=== PATIENT | female | born 1985 | race Caucasian/White ===

== ENCOUNTER 2019-02-05 03:19 | Inpatient (IN) | payer OTHER ==
[~2019-02-05] VITALS: Ht 165.1 cm; Wt 83.9 kg
--- NOTE | ~2019-02-05 | CON ---
[address] [address] CONSULTATION Name: CORNELIA JOE Room: [address] IN M.R.#: [id number] Admission: 02/05/19 Attend Phys: Shell Bah MD Discharge: Date of : 81 Report #: [id number] THIS REPORT FOR: //name// CC: [facility] physician/PCP Shell Bah HISTORY OF PRESENT ILLNESS: A 33-year-old female with no significant past medical history, who is presenting for evaluation of right lower quadrant abdominal pain. The patient reports the pain has been present for the last few weeks and has become progressively worse. The patient reports the pain was sharp, episodic and colicky in nature and has progressively increased in intensity prior to presentation to the hospital. The patient reports the pain has been relieved after she was started on IV antibiotics. She did report that pain medications did not seem to have significant effect on the pain. The patient denies any nausea, vomiting, diarrhea, hematemesis, hematochezia or any recent weight loss. The patient reports she had a colonoscopy performed about 3 years back and was told there was some inflammation in her colon, although she was never treated for any inflammatory bowel disease and has never told she has Crohn's disease. The patient was given a course of antibiotics at that time. PAST MEDICAL HISTORY: Nonsignificant. PAST SURGICAL HISTORY: Nonsignificant. FAMILY HISTORY: There is no family history of autoimmune disorders or inflammatory bowel disease. SOCIAL HISTORY: The patient denies smoking, alcohol or recreational drug use. REVIEW OF SYSTEMS: Negative except what is mentioned in the HPI. PHYSICAL EXAMINATION: VITAL SIGNS: Temperature 36.8, pulse rate 63, respirations 18, blood pressure 123/83 and temperature 36.8. GENERAL: The patient is alert, awake and oriented x 3. HEENT: Pupils are equal, round, reactive to light and accommodation. Mucous members are moist. There is no congestion. LUNGS: Clear to auscultation bilaterally. CARDIOVASCULAR: Rate and rhythm regular. S1 and S2 present. ABDOMEN: Soft. There is no distention, tenderness and guarding are present in the suprapubic and right lower quadrant region. No rigidity. EXTREMITIES: Warm, well perfused. There is no edema. LABORATORY DATA: Hemoglobin 10.0, hematocrit 31.4, platelet count 311 and WBC count 7.8. Sodium 140, potassium 3.7, chloride 106, bicarbonate 26, BUN 5 and [place] 0[place]9. [place] [id number] CONSULTATION Name: CORNELIA JOE Room: [address] IN [facility]#: [id number] Admission: 02/05/19 Attend Phys: Shell Bah MD Discharge: Date of : 81 Report #: [id number] RADIOLOGICAL DATA: Abdomen CT performed demonstrated severe inflammatory change with wall thickening and hypervascularity enhancement surrounding the right lower quadrant. This involves cecum and distal ileum. There is adjacent fluid collection not necessarily walled off measuring 4 cm. The appendix is somewhat difficult to visualize. The appendix could be inflamed structure in this region. The significant involvement of cecum with adjacent irregularity and possible fluids representing small abscesses. This may be related to inflammatory bowel disease or a small bowel tumor with perforation could not be excluded. ASSESSMENT AND PLAN: This is a pleasant 33-year-old female with no significant past medical history who presents with right lower quadrant abdominal pain. Imaging demonstrates evidence of contained perforation in the right lower quadrant with a 4 cm of fluid collection suggestive of inflammatory bowel disease with abscess formation. Continue IV antibiotics for now. The presence of a suspected perforation, endoscopy would be contraindicated and therefore, we would recommend a colonoscopy in about 3-4 weeks' time as outpatient to rule out inflammatory bowel disease. This has been discussed with the patient. Thank you for this consultation. By: [id number] Jeffries MD /merline
[2019-02-05 03:29] VITALS: BP 140/81
[2019-02-05] MEDS ORDERED: BIRTH CONTROL PILL (03:31)
[2019-02-05 04:23] LABS: HEMATOCRIT 33.6 % (37.0-47.0); HEMOGLOBIN 10.8 gm/dL (12.0-15.0); MCH 27.1 pg (26.0-34.0); MCHC 32.1 g/dL (28.0-37.0); MCV 84.4 fL (80.0-100.0); MPV 8.1 fl. (7.2-11.1); NUCLEATED RBCS 0 /100WBC; PLATELET COUNT* 343 thou/uL (150-400); RBC 3.98 mil/uL (4.20-5.00); RDW-CV 14.5 % (10.5-14.5); WBC 13.6 thou/uL (4.0-11.0)
[2019-02-05 04:42] LABS: ALBUMIN 2.7 g/dL (3.4-5.0); CREATININE 0.9 mg/dL (0.6-1.3); POTASSIUM 4.1 mmol/L (3.5-5.1); TOTAL BILIRUBIN 0.3 mg/dL (<0.1-1.0); TOTAL PROTEIN 8.7 g/dL (6.4-8.2)
[2019-02-05 05:30] LABS: URINE BILIRUBIN NEGATIVE (Negative); URINE BLOOD TRACE (Negative); URINE CLARITY CLEAR; URINE COLOR YELLOW; URINE GLUCOSE-RANDOM NEGATIVE (Negative); URINE KETONES NEGATIVE (Negative); URINE LEUKOCYTES-REFLEX 3+ (Negative); URINE NITRITE-REFLEX NEGATIVE (Negative); URINE PROTEIN NEGATIVE (Negative); URINE UROBILINOGEN 0.2 E.U./dl (0.2-1.0)
[2019-02-05 05:37] LABS: BACTERIA-REFLEX 1-9 Few /HPF (None Seen); CASTS None Seen /LPF (None Seen); CRYSTALS None Seen /LPF (None Seen); MUCUS 4-6 Moderate strn/LPF (None Seen); SQUAMOUS 0-3 Few /LPF (0-3); URINE RBC 0-2 Rare /HPF (0-2)
[2019-02-05 05:41] LABS: ABSOLUTE EOSINOPHILS 0.1 thou/uL (0.0-0.7); ABSOLUTE LYMPHOCYTES 1.6 thou/uL (0.8-5.3); ABSOLUTE MONOCYTES 0.7 thou/uL (0.0-1.2); ABSOLUTE NEUTROPHILS 11.2 thou/uL (1.6-8.1); ANISOCYTOSIS 1+; PLATELET ESTIMATE ADEQUATE
[2019-02-05 05:42] LABS: POIKILOCYTOSIS 1+
--- NOTE | 2019-02-05 06:41 | NUR ---
DR PYLE CONSULTED FOR PT'S ABD PAIN PER DR NOVOA.
[2019-02-05 10:33] VITALS: BP 122/73
--- NOTE | 2019-02-05 10:45 | NUR ---
ADMIT NOTE - PT ADMITTED TO [facility]. IVF RUNNING CURRENTLY. MOTHER AT BEDSIDE. ORIENTED TO CALL LIGHT AND SURROUNDINGS. WILL CONTINUE TO MONITOR.
[2019-02-05 16:18] VITALS: BP 115/77
[2019-02-05 20:30] VITALS: BP 119/74
[2019-02-06 05:03] LABS: ABSOLUTE BASOPHILS 0.1 thou/uL (0.0-0.2); ABSOLUTE EOSINOPHILS 0.1 thou/uL (0.0-0.7); ABSOLUTE LYMPHOCYTES 1.2 thou/uL (0.8-5.3); ABSOLUTE MONOCYTES 0.8 thou/uL (0.0-1.2); ABSOLUTE NEUTROPHILS 8.9 thou/uL (1.6-8.1); BASOPHILS 0.6 %; EOSINOPHILS 1.2 %; HEMATOCRIT 33.1 % (37.0-47.0); HEMOGLOBIN 10.4 gm/dL (12.0-15.0); LYMPHOCYTES 11.1 %; MCH 26.7 pg (26.0-34.0); MCHC 31.3 g/dL (28.0-37.0); MCV 85.3 fL (80.0-100.0); MONOCYTES 7.4 %; MPV 8.3 fl. (7.2-11.1); NUCLEATED RBCS 0 /100WBC; PLATELET COUNT* 327 thou/uL (150-400); POLYS 79.7 %; RBC 3.88 mil/uL (4.20-5.00); RDW-CV 14.5 % (10.5-14.5); WBC 11.1 thou/uL (4.0-11.0)
--- NOTE | 2019-02-06 05:10 | NUR ---
PT A&O X4. SAO2 95% RA. PT DENIES PAIN DURING ASSESSMENT. VS WITHIN NORMAL. SHEDULED MEDS AND IV ABX INFUSED ORDERED. NO PAIN MEDS WAS GIVEN TO PT DURING SHIFT. PT WITH MOM ALL THROUGH THE NIGHT. NPO ORDER STILL ACTIVE, PT UNHAPPY WITH IT, REQUESTED ICE CHIPS BUT 'S ORDERS SAYS STRICT NOP, SO NON WAS GIVEN. PT SLEPT FOR MOST OF THE NIGHT, BED IN LOW POSITION, CALL LIGHT WITHIN REACH. WILL CONTINUE TO FOLLOW PLAN OF CARE.
[2019-02-06 05:25] LABS: CALCIUM 8.4 mg/dL (8.5-10.1)
--- NOTE | 2019-02-06 06:10 | NUR ---
PT'S BLOOD GLUCOSE WAS 55MG/DL THIS AM. HYPOGLYCEMIA PROTOCOL WAS INITIATED. 1 AMP OF D50 IV PUSH WAS GIVEN. DR SHAY WAS CALLED, HE ORDERED N/S TO BE DC'D AND D5 1/5 NS STARTED @ 125ML/HR. WILL RECHECK BLOOD SUGAR IN 30 MINUTES. PT ALERT & ORIENTED.
--- NOTE | 2019-02-06 06:31 | NUR ---
I HAVE REVIEWED CHARTING COMPLETED BY KIRSTEN AYALA RN AND CONCUR WITH HER DOCUMENTATION.
--- NOTE | 2019-02-06 06:39 | NUR ---
PATIENT'S BLOOD SUGAR RECHECKED AT 0630 AND FOUND TO BE 169. WILL CONTINUE TO MONITOR.
[2019-02-06 08:00] VITALS: BP 126/79
[2019-02-06 15:45] VITALS: BP 137/87
--- NOTE | 2019-02-06 16:56 | NUR ---
SHIFT NOTE - MULTIPLE FAMILY MEMBERS AT BEDSIDE THIS SHIFT. IVF INFUSING. UP AD CED. WILL CONTINUE TO MONITOR.
[2019-02-07 04:38] LABS: HEMATOCRIT 31.4 % (37.0-47.0); MCH 27.1 pg (26.0-34.0); MCV 84.7 fL (80.0-100.0); MPV 8.2 fl. (7.2-11.1); RBC 3.7 mil/uL (4.20-5.00); RDW-CV 14.2 % (10.5-14.5); WBC 7.8 thou/uL (4.0-11.0)
[2019-02-07 04:48] LABS: CALCIUM 8.7 mg/dL (8.5-10.1); CREATININE 0.9 mg/dL (0.6-1.3); POTASSIUM 3.7 mmol/L (3.5-5.1)
--- NOTE | 2019-02-07 05:33 | NUR ---
PATIENT SLEPT WELL DURING THIS SHIFT. PT UP AD CED TO BATHROOM. PT WITH FLUIDS/ANTIBIOTICS INFUSING PER DR ORDER IN LT AC. PT DENIES PAIN/NAUSEA ON THIS SHIFT. PT SAYS SHE FEELS MUCH BETTER THIS AM. PT DENIES NEEDS AT THIS TIME. FREQUENTLY USED ITEMS AND CALL LIGHT WITHIN REACH. SIDERAILS UPX2. WILL CONTINUE TO MONITOR.
[2019-02-07 08:00] VITALS: BP 122/65
[2019-02-07 15:50] VITALS: BP 126/83
--- NOTE | 2019-02-07 16:35 | NUR ---
SHIFT NOTE - FAMILY AT BEDSIDE FOR MOST OF THIS SHIFT. ABLE TO AMBULATE TO BR WITH AD CED. WILL BE NPO p MN FOR CT SCAN. WILL CONTINUE TO MONITOR.
[2019-02-08] VITALS: BP 121/79
[2019-02-08 08:10] VITALS: BP 111/70
--- NOTE | 2019-02-08 17:29 | NUR ---
PATIENT HAS BEEN A/O X [address] SCAN COMPLETED THIS AM. PATIENT HAS DENIED PAIN. UP AD CED IN ROOM. PATIENT TOLERATING DIET. TAXATION AGENT CONSULTED FOR LOW RESIDUE DIET INSTRUCTION. HAS SLEPT IN NAPS THIS AFTERNOON. MOM AT BEDSIDE INTERMITTENTLY. HOURLY ROUNDING COMPLETED. CALL LIGHT WITHIN REACH. WILL CONTINUE WITH PLAN OF CARE.
[2019-02-08 19:45] VITALS: BP 117/81
[2019-02-09 04:28] LABS: ABSOLUTE EOSINOPHILS 0.3 thou/uL (0.0-0.7); ABSOLUTE LYMPHOCYTES 1.7 thou/uL (0.8-5.3); ABSOLUTE MONOCYTES 0.7 thou/uL (0.0-1.2); ABSOLUTE NEUTROPHILS 6.1 thou/uL (1.6-8.1); BASOPHILS 0.4 %; EOSINOPHILS 3.1 %; HEMATOCRIT 31.5 % (37.0-47.0); LYMPHOCYTES 19.3 %; MCH 26.8 pg (26.0-34.0); MCHC 31.8 g/dL (28.0-37.0); MCV 84.3 fL (80.0-100.0); MPV 8.3 fl. (7.2-11.1); NUCLEATED RBCS 0 /100WBC; PLATELET COUNT* 305 thou/uL (150-400); POLYS 69.2 %; RBC 3.74 mil/uL (4.20-5.00); RDW-CV 13.9 % (10.5-14.5); WBC 8.9 thou/uL (4.0-11.0)
[2019-02-09 04:39] LABS: CALCIUM 8.6 mg/dL (8.5-10.1); POTASSIUM 3.6 mmol/L (3.5-5.1)
--- NOTE | 2019-02-09 05:23 | NUR ---
PT SLEPT MOST OF SHIFT. ASSESSMENT DOCUMENTED. MEDS GIVEN PER E-MAR. IV PATENT, FLUIDS INFUSING. NO REPORTS OF PAIN OR NAUSEA THIS SHIFT. VISITOR REMAINED AT BEDSIDE. WILL CONTINUE WITH PLAN OF CARE.
[2019-02-09 07:50] VITALS: BP 129/82
[2019-02-09 11:34] VITALS: BP 129/82
[2019-02-09] MEDS ORDERED: METRONIDAZOLE500 M4 PO (13:57)
[2019-02-09] MEDS ORDERED: AUGMENTIN 875-1 EACH PO (13:57)
[2019-02-09] MEDS ORDERED: PROTONIX40 M1 PO (13:57)
[2019-02-09 14:26] VITALS: BP 129/82
[2019-02-09 15:07] VITALS: BP 129/82
== END 2019-02-09 15:45 | disposition home or self-care (01) | DRG 373 ==
LOC: M.ERS 03:19 → M.3W 08:55 → M.TBA-ER 08:55 → M.3W 10:39
PROVIDERS: Emergency Medicine Emergency Medical Services; Surgery; ADMIT Family Medicine
DX: K35.33 Acute appendicitis with perforation, localized peritonitis, and gangrene, with abscess (principal); K58.9 Irritable bowel syndrome, unspecified; H91.90 Unspecified hearing loss, unspecified ear; F17.210 Nicotine dependence, cigarettes, uncomplicated; Z83.71 Family history of colonic polyps

== ENCOUNTER 2019-02-13 08:38 | Inpatient (IN) | payer OTHER ==
[~2019-02-13] VITALS: Ht 165.1 cm; Wt 79.8 kg
[~2019-02-13 08:38] MED LIST: AUGMENTIN 875-1 EACH PO; BIRTH CONTROL PILL PO; METRONIDAZOLE500 M4 PO; PROTONIX40 M1 PO
[2019-02-13 08:48] VITALS: BP 147/96
[2019-02-13 09:35] LABS: URINE BLOOD NEGATIVE (Negative); URINE CLARITY SL CLOUDY; URINE COLOR YELLOW; URINE GLUCOSE-RANDOM NEGATIVE (Negative); URINE KETONES 1+ (Negative); URINE LEUKOCYTES-REFLEX NEGATIVE (Negative); URINE NITRITE-REFLEX NEGATIVE (Negative); URINE PROTEIN 1+ (Negative); URINE SPECIFIC GRAVITY >= 1.030 (1.005-1.030); URINE UROBILINOGEN 0.2 E.U./dl (0.2-1.0)
[2019-02-13 09:41] LABS: ICTOTEST (BILI CONFIRMATORY) Positive (Negative); URINE BILIRUBIN 1+ (Negative)
[2019-02-13 09:44] LABS: AMP/METHAMP Negative (Negative); BARBITURATES Negative (Negative); BENZODIAZEPINES Negative (Negative); COCAINE Negative (Negative); METHADONE Negative (Negative); OPIATES Negative (Negative); PCP Negative (Negative); THC Negative (Negative)
[2019-02-13 09:51] LABS: SQUAMOUS >10 Many /LPF (0-3)
[2019-02-13 09:53] LABS: CASTS None Seen /LPF (None Seen); MUCUS >6 Heavy strn/LPF (None Seen); URINE RBC None Seen /HPF (0-2); URINE WBC-REFLEX 0-5 Rare /HPF (0-5)
[2019-02-13 09:54] LABS: CRYSTALS None Seen /LPF (None Seen)
[2019-02-13 10:06] LABS: ABSOLUTE BASOPHILS 0.1 thou/uL (0.0-0.2); ABSOLUTE EOSINOPHILS 0.2 thou/uL (0.0-0.7); ABSOLUTE LYMPHOCYTES 1.1 thou/uL (0.8-5.3); ABSOLUTE MONOCYTES 0.6 thou/uL (0.0-1.2); ABSOLUTE NEUTROPHILS 6.8 thou/uL (1.6-8.1); BASOPHILS 0.6 %; EOSINOPHILS 2.3 %; HEMATOCRIT 37.9 % (37.0-47.0); HEMOGLOBIN 12.4 gm/dL (12.0-15.0); LYMPHOCYTES 12.1 %; MCH 27.1 pg (26.0-34.0); MCHC 32.7 g/dL (28.0-37.0); MCV 82.9 fL (80.0-100.0); MONOCYTES 7.1 %; MPV 8.1 fl. (7.2-11.1); NUCLEATED RBCS 0 /100WBC; PLATELET COUNT* 345 thou/uL (150-400); POLYS 77.9 %; RBC 4.57 mil/uL (4.20-5.00); RDW-CV 14.5 % (10.5-14.5); WBC 8.8 thou/uL (4.0-11.0)
[2019-02-13 10:34] LABS: CALCIUM 9.4 mg/dL (8.5-10.1); CREATININE 1.1 mg/dL (0.6-1.3); TOTAL BILIRUBIN 0.4 mg/dL (<0.1-1.0); TOTAL PROTEIN 9.1 g/dL (6.4-8.2)
[2019-02-13 13:21] VITALS: BP 147/96
[2019-02-13 13:45] VITALS: BP 114/68
[2019-02-14] VITALS: BP 101/62
[2019-02-14 04:01] LABS: HEMATOCRIT 35.8 % (37.0-47.0); HEMOGLOBIN 11.8 gm/dL (12.0-15.0); MCH 27.3 pg (26.0-34.0); MCHC 32.9 g/dL (28.0-37.0); MCV 83.2 fL (80.0-100.0); MPV 8.2 fl. (7.2-11.1); NUCLEATED RBCS 0 /100WBC; PLATELET COUNT* 297 thou/uL (150-400); RDW-CV 14.3 % (10.5-14.5)
[2019-02-14 04:21] LABS: ALBUMIN 2.7 g/dL (3.4-5.0); CALCIUM 9.3 mg/dL (8.5-10.1); CREATININE 0.9 mg/dL (0.6-1.3); POTASSIUM 4.3 mmol/L (3.5-5.1); TOTAL BILIRUBIN 0.4 mg/dL (<0.1-1.0); TOTAL PROTEIN 8.4 g/dL (6.4-8.2)
[2019-02-14 06:40] LABS: ABSOLUTE BASOPHILS 0.1 thou/uL (0.0-0.2); ABSOLUTE LYMPHOCYTES 0.5 thou/uL (0.8-5.3); ABSOLUTE MONOCYTES 0.1 thou/uL (0.0-1.2); ABSOLUTE NEUTROPHILS 5.3 thou/uL (1.6-8.1)
[2019-02-14 06:41] LABS: PLATELET ESTIMATE ADEQUATE
[2019-02-14 08:05] VITALS: BP 110/69
[2019-02-14 15:30] VITALS: BP 107/57
[2019-02-14 21:00] VITALS: BP 110/62
[2019-02-15 03:57] LABS: HEMATOCRIT 33.5 % (37.0-47.0); HEMOGLOBIN 10.8 gm/dL (12.0-15.0); MCHC 32.4 g/dL (28.0-37.0); MCV 83.3 fL (80.0-100.0); MPV 8.4 fl. (7.2-11.1); NUCLEATED RBCS 0 /100WBC; PLATELET COUNT* 290 thou/uL (150-400); RBC 4.02 mil/uL (4.20-5.00); RDW-CV 14.5 % (10.5-14.5); WBC 10.3 thou/uL (4.0-11.0)
[2019-02-15 04:23] LABS: ALBUMIN 2.7 g/dL (3.4-5.0); CALCIUM 8.9 mg/dL (8.5-10.1); CREATININE 0.8 mg/dL (0.6-1.3); POTASSIUM 4.2 mmol/L (3.5-5.1); TOTAL BILIRUBIN 0.2 mg/dL (<0.1-1.0); TOTAL PROTEIN 7.8 g/dL (6.4-8.2)
[2019-02-15 04:46] LABS: ABSOLUTE LYMPHOCYTES 0.9 thou/uL (0.8-5.3); ABSOLUTE MONOCYTES 0.1 thou/uL (0.0-1.2); ABSOLUTE NEUTROPHILS 9.3 thou/uL (1.6-8.1); PLATELET ESTIMATE ADEQUATE
[2019-02-15 08:00] VITALS: BP 123/87
[2019-02-15 10:06] LABS: IgA 485 mg/dL (87-352); IgG 1799 mg/dL (700-1600); IgM 164 mg/dL (26-217)
[2019-02-15 14:06] LABS: HEPATITIS B SURFACE AG Negative (Negative)
[2019-02-15 16:00] VITALS: BP 120/71
[2019-02-15 21:40] VITALS: BP 114/73
[2019-02-16 05:53] LABS: CREATININE 0.9 mg/dL (0.6-1.3); POTASSIUM 4.3 mmol/L (3.5-5.1)
[2019-02-16 15:52] VITALS: BP 137/87
[2019-02-16 21:30] VITALS: BP 121/77
[2019-02-17 02:07] VITALS: BP 121/77
[2019-02-17 04:49] LABS: NUCLEATED RBCS 0 /100WBC; PLATELET COUNT* 250 thou/uL (150-400)
[2019-02-17 04:56] LABS: ABSOLUTE LYMPHOCYTES 0.7 thou/uL (0.8-5.3); ABSOLUTE MONOCYTES 0.3 thou/uL (0.0-1.2); ABSOLUTE NEUTROPHILS 8.9 thou/uL (1.6-8.1); BASOPHILS 0.1 %; HEMATOCRIT 33.5 % (37.0-47.0); HEMOGLOBIN 10.7 gm/dL (12.0-15.0); LYMPHOCYTES 6.9 %; MCH 26.7 pg (26.0-34.0); MCHC 31.9 g/dL (28.0-37.0); MCV 83.6 fL (80.0-100.0); MONOCYTES 2.8 %; MPV 9.3 fl. (7.2-11.1); POLYS 90.2 %; RBC 4.01 mil/uL (4.20-5.00); RDW-CV 14.9 % (10.5-14.5); WBC 9.9 thou/uL (4.0-11.0)
[2019-02-17 04:58] LABS: CALCIUM 8.9 mg/dL (8.5-10.1); CREATININE 0.9 mg/dL (0.6-1.3); POTASSIUM 3.9 mmol/L (3.5-5.1)
[2019-02-17 06:31] LABS: ESR (SEDRATE) 45 mm/hr (0-20)
[2019-02-17 06:43] VITALS: BP 121/77
[2019-02-17 07:30] VITALS: BP 146/90
[2019-02-17 13:30] VITALS: BP 151/89
[2019-02-17 16:47] VITALS: BP 129/67
[2019-02-17 21:20] VITALS: BP 111/74
[2019-02-18 04:28] LABS: HEMATOCRIT 35.2 % (37.0-47.0); HEMOGLOBIN 11.2 gm/dL (12.0-15.0); MCH 26.7 pg (26.0-34.0); MCHC 31.9 g/dL (28.0-37.0); MCV 83.5 fL (80.0-100.0); MPV 9.1 fl. (7.2-11.1); RBC 4.21 mil/uL (4.20-5.00); RDW-CV 14.7 % (10.5-14.5)
[2019-02-18 04:43] LABS: CREATININE 0.8 mg/dL (0.6-1.3); MAGNESIUM 1.9 mg/dL (1.8-2.4); POTASSIUM 4.1 mmol/L (3.5-5.1)
[2019-02-18] MEDS ORDERED: LEVSIN0.125 MG SUBLING (09:09)
[2019-02-18 12:33] VITALS: BP 131/68
--- NOTE | 2019-02-18 15:06 | PATH ---
[address] [address] PATHOLOGY RPT PROCEDURE Name: CORNELIA TOBAR Room: [address] IN M.R.#: [id number] Admission: 02/13/19 Date of : 81 Discharge: Report #: [id number] Path Case #: [id number] [facility] Accession Number: [id number] . 01 Material submitted: . colon - ASCENDING COLON ULCER BIOPSY: CROHN'S. Modifiers: ascending . 01 Clinical history: . Crohn's . 02 Diagnosis: Tissue submitted as "ascending colon ulcer": - Compatible with Crohn's disease with moderate activity and with microgranuloma noted, negative for viral inclusions and dysplasia. See comment. (MARGARITO:pit 02/18/2019) . QTP/02/18/2019 . 02 Comment: The biopsies reveal benign colonic mucosa with evidence of chronic inflammation including crypt distortion and basal lymphoplasmacytosis and there is active inflammation with easily identified neutrophils in the lamina propria and a crypt abscess. (MARGARITO:pit 02/18/2019) . 02 Electronically signed: . Azar Braden MD, Pathologist NPI- [id number] . 01 Gross description: . Received in formalin labeled "Cornelia Tobar, ascending colon ulcer," are 4 segments of bonilla soft tissue measuring 1.6 x 0.8 x 0.2 cm in aggregate dimensions and ranging from 0.3 to 0.5 cm in maximum dimension. The specimen is submitted entirely in cassette A1. (TSD; 02/17/2019) TOB/TOB . 02 Pathologist provided ICD-10: K50.00 . 02 CPT . 196172 Specimen Comment: A courtesy copy of this report has been sent to Specimen Comment: [phone], . Specimen Comment: Report sent to / DR PLAZA Performed at: [address] [place] [address] PATHOLOGY RPT PROCEDURE Name: CORNELIA TOBAR Room: [address] IN [facility]#: [id number] Admission: 02/13/19 Date of : 81 Discharge: Report #: [id number] Path Case #: [id number] [address], [place], [place] [id number] MD Morales Garcia MD Phone: [phone] Performed at: [address] [address] [address], [place], [place] [id number] MD Azar Braden MD Phone: [phone]
[2019-02-18 17:02] VITALS: BP 114/87
[2019-02-18 19:30] VITALS: BP 119/73
[2019-02-19 08:05] VITALS: BP 133/86
[2019-02-19 14:48] VITALS: BP 133/86
[2019-02-19] MEDS ORDERED: PREDNISONE 10 M10 MG PO (15:47)
[2019-02-19] MEDS ORDERED: PREDNISONE 10 M10 M1 PO (15:47)
[2019-02-19] MEDS ORDERED: CIPRO500 MG PO (15:48)
[2019-02-19] MEDS ORDERED: [UNRECOGNIZED DRUG - OTHER] PO (15:49)
[2019-02-19] MEDS ORDERED: HYOSCYAMINE0.125 M2 PO (15:50)
--- NOTE | 2019-02-19 19:36 | CON ---
[facility] [address] [place] [address] CONSULTATION Name: CORNELIA JOE Room: [address] IN M.R.#: [id number] Admission: 02/13/19 Attend Phys: Oskar Tamez, Discharge: 02/19/19 Date of : 81 Report #: [id number] THIS REPORT FOR: //name// CC: Rico Neely DO [facility] physician/PCP Evelyn Tamez MD DATE OF SERVICE: 02/13/2019 REFERRING PHYSICIAN: Oskar Tamez M.D. REASON FOR CONSULTATION: Right lower quadrant pain with abnormal CAT scan. IMPRESSION: 1. Severe right lower quadrant pain with a markedly abnormal CAT scan suggestive of severe ileocolitis with possible abscess formation - suspect Crohn's ileocolitis. 2. Chronic right lower quadrant pain off and on for the last year for which the patient was originally referred to us for the same but never showed up for the same, making the diagnosis of Crohn's ileocolitis very likely. 3. Nausea, vomiting secondary to the same without evidence for obstruction. 4. Weight loss secondary to the same about 20 pounds over the last few months with associated anorexia and postprandial pain. 5. Abnormal colonoscopy in July 2015 by my partner, Dr. Moss, which revealed diffuse colitis throughout the colon with biopsies revealing a focal active colitis suspicious for infectious colitis -- suspect the patient may have had Crohn's at that time. RECOMMENDATIONS: 1. At the present time, I would like to have the patient like for us to hold off on any surgical intervention as she would have a lot of GI tract that would have to be removed, which is not absolutely necessary at this time. 2. Instead, we will begin the patient on IV steroids in the form of Solu-Medrol 40 mg IV q. 8 hours with first dose to be done as soon as possible. 3. We will begin the patient on clear liquid diet for now with eventual advancement to a low-residue diet as she feels she improves. 4. We will continue with IV antibiotics in the form of Zosyn, but we will add some Flagyl at this time. Also make adjustments with her pain medications of fentanyl and antiemetics with Zofran and scopolamine. 5. We will hold off on any further scans at this time. I will need to review that with Radiology whether or not there is a type of fluid collection that resembles an abscess or that required to drain, but often this is start of inflammatory change from the ileocolitis. She may need to have CT enterography or MR enterography but I would like to [place] [address] CONSULTATION Name: CORNELIA JOE Room: [address] IN M.R.#: [id number] Admission: 02/13/19 Attend Phys: Oskar Tamez, Discharge: 02/19/19 Date of : 81 Report #: [id number] 6. Depending on response to IV steroids, I would like to proceed with a colonoscopy over during this hospital stay but need to await until she can tolerate a bowel prep. She will not get a full bowel prep likely normally do, but probably some magnesium citrate, some Dulcolax. 7. Hold off as mentioned above, hold off on surgery unless she becomes really acutely ill with free perforation or obstruction. It does not resolve with IV steroids, NG tube, etc. A total of 60 minutes was used to review records, x-rays, etc. and 30 minutes in talking with the patient and her mother. I have discussed the plans with the patient as well as her mother and she is agreeable to the same. HISTORY OF PRESENT ILLNESS: The patient is a pleasant 33-year-old white female who has had problems off and on for the last year with persistent right lower quadrant pain but had to be hospitalized last month for these complaints and was noted to have rather severe colitis involving the cecum, distal terminal ileum and at the level of the appendiceal orifice. As such, she has some type of infectious colitis or enteritis, but there is also evidence for a little bit of free air outside of the bowel wall, making a colonoscopy contraindicated that time. She was treated with IV antibiotics and sent home on a course of Augmentin and Flagyl after 4-5 days and was doing relatively well. However, she came back in the hospital because the pain has become unbearable. She was having fevers and chills as well as night sweats. She has not been able to keep much of anything down. She came in with dehydration. She has lost about 20 pounds over the last few months secondary to these problems. She has no prior history of known inflammatory bowel disease, nor any family history of inflammatory bowel disease or autoimmune disorders. She did, however, undergo colonoscopy by my partner, Dr. Moss, back in July 2015, which revealed diffuse colitis of uncertain etiology without evidence for obvious ileitis. Biopsies taken from the colon were all compatible with focal active colitis, which could be medical service representative of an infectious colitis. There is nothing to suggest a chronic history of problem. However, the patient has been having problems for the last year and a half and was referred to our office but we were never able to get in contact with her after multiple unsuccessful attempts. She has not readmitted to the hospital with similar type problems from her last hospital stay. ALLERGIES: None. MEDICATIONS: None except for control pill. PAST MEDICAL AND SURGICAL HISTORY: Only remarkable for that which mentioned above, she had apparently meningitis as a child. She had no previous surgeries. SOCIAL HISTORY: The patient does not smoke or drink. FAMILY HISTORY: Remarkable for colon polyps in a grandfather[place] [address] CONSULTATION Name: CHI JOEINA ESA Room: [address] IN [facility]#: [id number] Admission: 02/13/19 Attend Phys: Oskar Tamez, Discharge: 02/19/19 Date of : 81 Report #: [id number] family history of inflammatory bowel disease, ulcerative colitis, psoriasis, lupus or rheumatoid arthritis. PHYSICAL EXAMINATION: GENERAL: Revealed a 33-year-old white female, appears fairly washed out. CARDIOPULMONARY: Revealed a regular rate and rhythm. She does not appear to be toxic. LUNGS: Clear. ABDOMEN: Soft. She was tender to palpation left groin, right lower quadrant without rebound, but she has no involuntary guarding. LABORATORY DATA: Her laboratory tests from the 6th today revealed a white count of 8.8; hemoglobin 12.4 and platelet count 345,000. Her MCV is 82.9 and RDW 14.5. Her sodium 137, potassium 4.0, chloride 100, bicarbonate 26, BUN 11 and creatinine 1.1. Total bilirubin 0.4, alkaline phosphatase is 92, AST 19, ALT 14. Her total protein is 9.1. Albumin is 3.0. This is factitious because she is dehydrated. Her urine drug screen was negative. By comparison, her laboratory tests from her last hospital stay revealed a discharge white count of 8.9; hemoglobin 10.0 and platelet count 305,000. Her BUN and creatinine were 11 and 1.1 respectively for GFR of 85, which is markedly worse than her admission. When she got hydrated, her total protein went down to 7.3 with an albumin of only 2.2. This was done on February. TSH 1.232. Her CRP on last admission was 155 and her prealbumin 14.7. DISCUSSION: CT scan was reviewed and revealed a long segment of bowel wall thickening and edema involving the distal small bowel extending to the cecum. There is also wall thickening of the cecum. There is stranding inflammatory change adjacent to the same as well as a fluid collection posterior lateral to this region measured 3.6 x 2.4, which is similar to the prior study. There is an area of adjacent hyperemia and increased enhancement extending from the terminal ileum to the cecum, which could represent the appendix but is less likely. It is probably have more fluid filled component centrally. It is unclear whether this represents an extraluminal inflammatory change or abscess. Normal appendix is not visualized. The uterus and ovaries appeared normal. There is no significant free fluid. The colon is not distended, small bowel is mildly distended distally with numerous enlarged mesenteric lymph nodes measuring up to 15 x 27 mm and no retroperitoneal lymphadenopathy or any other findings. Her liver and spleen appeared normal. DISCUSSION: At the present time, the working diagnosis will be Crohn's ileocolitis, which is severe in nature. We will begin her on IV steroids [address] [address] CONSULTATION Name: CORNELIA JOE Room: [address] IN M.R.#: [id number] Admission: 02/13/19 Attend Phys: Oskar Martinez Randyrobeldorita, Discharge: 02/19/19 Date of : 81 Report #: [id number] tonight and await her response to the same. I have discussed these plans with the patient as well as her mother. <ELECTRONICALLY SIGNED> By: Joey Dougherty DO 02/19/19 [id number] Dougherty DO /nt
== END 2019-02-19 16:49 | disposition home or self-care (01) | DRG 386 ==
LOC: M.ERS 08:38 → M.3W 11:57 → M.TBA-ER 11:57 → M.3W 13:28
PROVIDERS: Internal Medicine; Internal Medicine Gastroenterology; Personal Emergency Response Attendant; Surgery; ADMIT Family Medicine
PROC: 0DBK8ZX Excision of Ascending Colon, Via Natural or Artificial Opening Endoscopic, Diagnostic (ICD-10-PCS; principal; 2019-02-17)
DX: K50.10 Crohn's disease of large intestine without complications (principal); L02.91 Cutaneous abscess, unspecified; K52.89 Other specified noninfective gastroenteritis and colitis; Z72.0 Tobacco use; K21.9 Gastro-esophageal reflux disease without esophagitis; Z87.898 Personal history of other specified conditions

== ENCOUNTER → 2019-05-07 | Outpatient (CLI) | payer OTHER ==
[~2019-05-07] MED LIST changes: +CIPRO500 MG PO; +HYOSCYAMINE0.125 M2 PO; +LEVSIN0.125 MG SUBLING; +PREDNISONE 10 M10 M1 PO; +PREDNISONE 10 M10 MG PO; +[UNRECOGNIZED DRUG - OTHER] PO
[2019-05-07 15:35] LABS: ABSOLUTE BASOPHILS 0.1 thou/uL (0.0-0.2); ABSOLUTE LYMPHOCYTES 1.6 thou/uL (0.8-5.3); ABSOLUTE MONOCYTES 0.5 thou/uL (0.0-1.2); ABSOLUTE NEUTROPHILS 9.7 thou/uL (1.6-8.1); BASOPHILS 0.5 %; EOSINOPHILS 0.1 %; HEMATOCRIT 39.9 % (37.0-47.0); LYMPHOCYTES 13.7 %; MCH 28.9 pg (26.0-34.0); MCHC 32.5 g/dL (28.0-37.0); MONOCYTES 3.8 %; MPV 7.8 fl. (7.2-11.1); NUCLEATED RBCS 0 /100WBC; PLATELET COUNT* 207 thou/uL (150-400); POLYS 81.9 %; RBC 4.49 mil/uL (4.20-5.00); WBC 11.9 thou/uL (4.0-11.0)
[2019-05-07 15:56] LABS: ALBUMIN 3.5 g/dL (3.4-5.0); CALCIUM 8.8 mg/dL (8.5-10.1); CREATININE 0.9 mg/dL (0.6-1.3); POTASSIUM 3.9 mmol/L (3.5-5.1); TOTAL BILIRUBIN 0.2 mg/dL (<0.1-1.0); TOTAL PROTEIN 7.5 g/dL (6.4-8.2)
[2019-05-07 16:39] LABS: ESR (SEDRATE) 9 mm/hr (0-20)
== END ==
LOC: M.LAB 15:05
PROVIDERS: Internal Medicine Gastroenterology
DX: D64.9 Anemia, unspecified (principal); K50.90 Crohn's disease, unspecified, without complications

== ENCOUNTER → 2019-10-20 | Outpatient (CLI) | payer OTHER ==
[2019-10-20 08:31] LABS: ABSOLUTE BASOPHILS 0.1 thou/uL (0.0-0.2); ABSOLUTE EOSINOPHILS 0.1 thou/uL (0.0-0.7); ABSOLUTE LYMPHOCYTES 1.9 thou/uL (0.8-5.3); ABSOLUTE MONOCYTES 0.5 thou/uL (0.0-1.2); ABSOLUTE NEUTROPHILS 3.7 thou/uL (1.6-8.1); BASOPHILS 1.4 %; EOSINOPHILS 0.9 %; HEMATOCRIT 40.6 % (37.0-47.0); HEMOGLOBIN 13.7 gm/dL (12.0-15.0); LYMPHOCYTES 29.9 %; MCH 30.4 pg (26.0-34.0); MCHC 33.7 g/dL (28.0-37.0); MCV 90.5 fL (80.0-100.0); MONOCYTES 7.9 %; MPV 8.1 fl. (7.2-11.1); NUCLEATED RBCS 0 /100WBC; PLATELET COUNT* 176 thou/uL (150-400); POLYS 59.9 %; RBC 4.48 mil/uL (4.20-5.00); RDW-CV 12.9 % (10.5-14.5); WBC 6.2 thou/uL (4.0-11.0)
[2019-10-20 08:44] LABS: ALBUMIN 3.8 g/dL (3.4-5.0); CALCIUM 8.7 mg/dL (8.5-10.1); CREATININE 0.7 mg/dL (0.6-1.3); POTASSIUM 3.8 mmol/L (3.5-5.1); TOTAL BILIRUBIN 0.6 mg/dL (<0.1-1.0); TOTAL PROTEIN 7.9 g/dL (6.4-8.2)
[2019-10-20 09:35] LABS: ESR (SEDRATE) 6 mm/hr (0-20)
== END ==
LOC: M.CT 09:34
PROVIDERS: Internal Medicine Gastroenterology
DX: K50.00 Crohn's disease of small intestine without complications (principal); K50.90 Crohn's disease, unspecified, without complications